=== PATIENT | male | born 1945 | race Caucasian/White ===

== ENCOUNTER 2016-07-26 18:14 | Inpatient (IN) | payer MEDICARE, SELFPAY ==
[~2016-07-26] VITALS: Ht 188 cm; Wt 143.0 kg
[2016-07-26 19:24] LABS: BASO % 0.3 % (0.2-1.2); EOS # 0.1 10_X3_uL (0.0-0.5); EOS % 0.8 % (0.8-7.0); GRAN # 7.4 10_X3_uL (1.8-5.4); GRAN % 77.9 % (34.0-67.9); HEMATOCRIT 37.1 % (40-51); HEMOGLOBIN 12.4 g/dL (13.7-17.5); LYMPH # 1.1 10_X3_uL (1.3-3.6); LYMPH % 11.9 % (21.8-53.1); MEAN CORPUSCULAR HEMOGLOBIN 29.5 pg (27.0-33.0); MEAN CORPUSCULAR HGB CONC 33.4 g/dL (32.0-36.0); MEAN CORPUSCULAR VOLUME 88.3 fL (79-92); MEAN PLATELET VOLUME 10.5 fl (7.5-11.5); MONO # 0.9 10_X3_uL (0.3-0.8); MONO % 9.1 % (5.3-12.2); PLATELET COUNT 213 x10_3/uL (163-337); RED CELL DISTRIBUTION WIDTH 14.6 % (11.6-14.4); WHITE BLOOD COUNT 9.5 x10_3/uL (4.2-9.1)
[2016-07-26 19:46] LABS: ARTERIAL BLD GAS O2 SATURATION 97.4 % (94-98); ARTERIAL BLOOD GAS BASE EXCESS 4.1 mmol/L (-2.0-3.0); ARTERIAL BLOOD GAS HCO3 27.6 mmol/L (22-26); ARTERIAL BLOOD GAS PCO2 38.5 mmHg (35-48); ARTERIAL BLOOD GAS pH 7.47 (7.35-7.45)
[2016-07-26 19:47] LABS: ALBUMIN 3.7 gm/dL (3.4-5.0); BILIRUBIN,TOTAL 0.27 mg/dL (0.0-1.0); CALCIUM 8.6 mg/dL (8.7-10.7); CREATININE 2.2 mg/dL (0.6-1.3); TOTAL PROTEIN 7.2 gm/dL (6.4-8.2)
[2016-07-26 19:53] LABS: POTASSIUM 3.5 mmol/L (3.5-5.1)
[2016-07-26 21:01] LABS: INR 3.4 (0.9-1.1); PARTIAL THROMBOPLASTIN TIME 40.7 SECONDS (21.3-29.3); PROTHROMBIN TIME (PATIENT) 34.4 SECONDS (9.9-11.1)
[2016-07-27 07:16] LABS: HEMATOCRIT 39.4 % (40-51); MEAN CORPUSCULAR VOLUME 87.8 fL (79-92); MEAN PLATELET VOLUME 10.7 fl (7.5-11.5); RED BLOOD COUNT 4.49 x10_6/uL (4.6-6.1); RED CELL DISTRIBUTION WIDTH 14.6 % (11.6-14.4); WHITE BLOOD COUNT 9.6 x10_3/uL (4.2-9.1)
[2016-07-27 07:29] LABS: CALCIUM 9.2 mg/dL (8.7-10.7); INR 3.8 (0.9-1.1); POTASSIUM 3.3 mmol/L (3.5-5.1); PROTHROMBIN TIME (PATIENT) 38.5 SECONDS (9.9-11.1)
[2016-07-27 15:07] LABS: FREE T4 1.24 ng/dL (0.93-1.7); THYROID STIMULATING HORMONE 1.89 uIU/mL (0.34-4.82)
[2016-07-28 06:35] LABS: INR 4.3 (0.9-1.1); PROTHROMBIN TIME (PATIENT) 44.3 SECONDS (9.9-11.1)
[2016-07-28 06:40] LABS: GRAN # 11.7 10_X3_uL (1.8-5.4); GRAN % 91.1 % (34.0-67.9); HEMATOCRIT 39.6 % (40-51); HEMOGLOBIN 13.2 g/dL (13.7-17.5); LYMPH # 0.7 10_X3_uL (1.3-3.6); LYMPH % 5.1 % (21.8-53.1); MEAN CORPUSCULAR HEMOGLOBIN 29.2 pg (27.0-33.0); MEAN CORPUSCULAR HGB CONC 33.3 g/dL (32.0-36.0); MEAN CORPUSCULAR VOLUME 87.6 fL (79-92); MEAN PLATELET VOLUME 10.7 fl (7.5-11.5); MONO # 0.5 10_X3_uL (0.3-0.8); MONO % 3.8 % (5.3-12.2); PLATELET COUNT 240 x10_3/uL (163-337); RED BLOOD COUNT 4.52 x10_6/uL (4.6-6.1); RED CELL DISTRIBUTION WIDTH 14.9 % (11.6-14.4); WHITE BLOOD COUNT 12.8 x10_3/uL (4.2-9.1)
[2016-07-28 06:51] LABS: ALBUMIN 3.7 gm/dL (3.4-5.0); BILIRUBIN,TOTAL 0.25 mg/dL (0.0-1.0); CALCIUM 9.2 mg/dL (8.7-10.7); CREATININE 2.3 mg/dL (0.6-1.3); POTASSIUM 3.3 mmol/L (3.5-5.1); TOTAL PROTEIN 7.7 gm/dL (6.4-8.2)
[2016-07-29 05:05] LABS: URINE BILIRUBIN NEGATIVE (NEGATIVE); URINE BLOOD NEGATIVE (NEGATIVE); URINE GLUCOSE (UA) NORMAL (NORMAL); URINE KETONE NEGATIVE (NEGATIVE); URINE LEUKOCYTE ESTERASE NEGATIVE (NEGATIVE); URINE MUCUS TRACE; URINE NITRATE NEGATIVE (NEGATIVE); URINE PROTEIN 1+ (NEGATIVE); URINE RBC 0-5 /[HPF] (0-2); UROBILINOGEN NORMAL mg/dL (<1.0)
[2016-07-29 06:37] LABS: MEAN CORPUSCULAR HEMOGLOBIN 29.6 pg (27.0-33.0); MEAN CORPUSCULAR HGB CONC 34.2 g/dL (32.0-36.0); MEAN CORPUSCULAR VOLUME 86.6 fL (79-92); MEAN PLATELET VOLUME 10.3 fl (7.5-11.5); RED BLOOD COUNT 4.39 x10_6/uL (4.6-6.1); RED CELL DISTRIBUTION WIDTH 14.8 % (11.6-14.4); WHITE BLOOD COUNT 12.3 x10_3/uL (4.2-9.1)
[2016-07-29 06:55] LABS: CALCIUM 8.9 mg/dL (8.7-10.7); CREATININE 2.4 mg/dL (0.6-1.3); POTASSIUM 3.1 mmol/L (3.5-5.1)
[2016-07-29 06:56] LABS: INR 2.9 (0.9-1.1); PROTHROMBIN TIME (PATIENT) 29.3 SECONDS (9.9-11.1)
[2016-07-30 07:31] LABS: HEMOGLOBIN 13.4 g/dL (13.7-17.5); MEAN CORPUSCULAR HEMOGLOBIN 29.4 pg (27.0-33.0); MEAN CORPUSCULAR HGB CONC 34.4 g/dL (32.0-36.0); MEAN CORPUSCULAR VOLUME 85.5 fL (79-92); MEAN PLATELET VOLUME 10.5 fl (7.5-11.5); RED BLOOD COUNT 4.56 x10_6/uL (4.6-6.1); RED CELL DISTRIBUTION WIDTH 14.6 % (11.6-14.4); WHITE BLOOD COUNT 9.6 x10_3/uL (4.2-9.1)
[2016-07-30 07:39] LABS: INR 1.9 (0.9-1.1)
[2016-07-30 07:41] LABS: CALCIUM 8.8 mg/dL (8.7-10.7); CREATININE 2.4 mg/dL (0.6-1.3)
[2016-07-31 08:13] LABS: HEMATOCRIT 39.2 % (40-51); HEMOGLOBIN 13.3 g/dL (13.7-17.5); MEAN CORPUSCULAR HEMOGLOBIN 29.2 pg (27.0-33.0); MEAN CORPUSCULAR HGB CONC 33.9 g/dL (32.0-36.0); MEAN PLATELET VOLUME 10.4 fl (7.5-11.5); RED BLOOD COUNT 4.56 x10_6/uL (4.6-6.1); RED CELL DISTRIBUTION WIDTH 14.8 % (11.6-14.4); WHITE BLOOD COUNT 11.4 x10_3/uL (4.2-9.1)
[2016-07-31 08:18] LABS: INR 1.9 (0.9-1.1); PROTHROMBIN TIME (PATIENT) 19.5 SECONDS (9.9-11.1)
[2016-07-31 08:33] LABS: CALCIUM 8.7 mg/dL (8.7-10.7); CREATININE 2.2 mg/dL (0.6-1.3)
[2016-07-31 08:44] LABS: POTASSIUM 3.1 mmol/L (3.5-5.1)
== END 2016-07-31 11:03 | disposition home or self-care (01) | DRG 191 ==
LOC: ER 18:14 → MS 07-27 00:39
PROVIDERS: Emergency Medicine; Family Medicine; ADMIT Family Medicine
DX: J44.0 Chronic obstructive pulmonary disease with (acute) lower respiratory infection (principal); J98.11 Atelectasis; J20.9 Acute bronchitis, unspecified; J44.1 Chronic obstructive pulmonary disease with (acute) exacerbation; J60 Coalworker's pneumoconiosis; I11.0 Hypertensive heart disease with heart failure; I50.9 Heart failure, unspecified; E11.9 Type 2 diabetes mellitus without complications; I25.10 Atherosclerotic heart disease of native coronary artery without angina pectoris; R50.9 Fever, unspecified; N28.9 Disorder of kidney and ureter, unspecified; E03.9 Hypothyroidism, unspecified; I48.91 Unspecified atrial fibrillation; R21 Rash and other nonspecific skin eruption; Z87.01 Personal history of pneumonia (recurrent); Z86.711 Personal history of pulmonary embolism; Z86.718 Personal history of other venous thrombosis and embolism; Z99.81 Dependence on supplemental oxygen; Z80.9 Family history of malignant neoplasm, unspecified; Z79.01 Long term (current) use of anticoagulants; Z79.899 Other long term (current) drug therapy; Z88.0 Allergy status to penicillin
CPT/HCPCS: 36415; 36600; 71010; 80048; 80053; 80061; 81001; 82550; 82553; 82803; 82962; 83036; 83605; 83880; 84439; 84443; 84479; 85025; 85610; 85730; 86738; 87040; 87070; 87205; 87449; 93005; 94640; 96365; 99070; 99284; 99285-25; J2930

== ENCOUNTER 2016-07-26 18:14 | Emergency (ER) | payer MEDICARE, SELFPAY | END 2016-07-27 00:39 | disposition other institution (70) | LOC: ER 18:14 | DX: J44.0 Chronic obstructive pulmonary disease with (acute) lower respiratory infection (principal); J20.9 Acute bronchitis, unspecified; J44.1 Chronic obstructive pulmonary disease with (acute) exacerbation; E11.9 Type 2 diabetes mellitus without complications; J60 Coalworker's pneumoconiosis; Z87.01 Personal history of pneumonia (recurrent); Z88.0 Allergy status to penicillin | CPT/HCPCS: 99284; 99285-25 ==

== ENCOUNTER 2016-08-05 22:26 | Emergency (ER) | payer MEDICARE, SELFPAY | END 2016-08-05 23:59 | disposition home or self-care (01) | LOC: ER 22:26 | DX: I50.9 Heart failure, unspecified (principal); N28.9 Disorder of kidney and ureter, unspecified; R06.02 Shortness of breath; R60.0 Localized edema; J44.9 Chronic obstructive pulmonary disease, unspecified; J60 Coalworker's pneumoconiosis; Z88.0 Allergy status to penicillin; Z79.899 Other long term (current) drug therapy; Z79.01 Long term (current) use of anticoagulants ==

== ENCOUNTER 2016-08-07 20:06 | Inpatient (IN) | payer MEDICARE ==
[~2016-08-07] VITALS: Ht 188 cm; Wt 134.0 kg
[2016-08-07 20:44] LABS: URINE BILIRUBIN NEGATIVE (NEGATIVE); URINE BLOOD 3+ (NEGATIVE); URINE GLUCOSE (UA) NORMAL (NORMAL); URINE KETONE NEGATIVE (NEGATIVE); URINE LEUKOCYTE ESTERASE NEGATIVE (NEGATIVE); URINE NITRATE NEGATIVE (NEGATIVE); URINE PROTEIN 2+ (NEGATIVE); UROBILINOGEN NORMAL mg/dL (<1.0)
[2016-08-07 21:00] LABS: URINE MUCUS 1+; URINE RBC TNTC /[HPF] (0-2); URINE SQUAMOUS EPITHELIAL CELL 0-10 /[HPF] (NONE SEEN)
[2016-08-07 21:03] LABS: BASO % 0.1 % (0.2-1.2); GRAN # 16.6 10_X3_uL (1.8-5.4); GRAN % 86.3 % (34.0-67.9); HEMATOCRIT 39.5 % (40-51); HEMOGLOBIN 13.1 g/dL (13.7-17.5); LYMPH # 1.3 10_X3_uL (1.3-3.6); LYMPH % 6.8 % (21.8-53.1); MEAN CORPUSCULAR HEMOGLOBIN 28.7 pg (27.0-33.0); MEAN CORPUSCULAR HGB CONC 33.2 g/dL (32.0-36.0); MEAN CORPUSCULAR VOLUME 86.6 fL (79-92); MEAN PLATELET VOLUME 11.2 fl (7.5-11.5); MONO # 1.3 10_X3_uL (0.3-0.8); MONO % 6.8 % (5.3-12.2); PLATELET COUNT 165 x10_3/uL (163-337); RED BLOOD COUNT 4.56 x10_6/uL (4.6-6.1); RED CELL DISTRIBUTION WIDTH 14.4 % (11.6-14.4); WHITE BLOOD COUNT 19.2 x10_3/uL (4.2-9.1)
[2016-08-07 21:05] LABS: ARTERIAL BLOOD GAS BASE EXCESS 7.7 mmol/L (-2.0-3.0); ARTERIAL BLOOD GAS HCO3 31.6 mmol/L (22-26); ARTERIAL BLOOD GAS PCO2 42.2 mmHg (35-48); ARTERIAL BLOOD GAS pH 7.49 (7.35-7.45)
[2016-08-07 21:06] LABS: ARTERIAL BLD GAS O2 SATURATION 80.7 % (94-98)
[2016-08-07 21:23] LABS: ALBUMIN 3.1 gm/dL (3.4-5.0); BILIRUBIN,TOTAL 0.67 mg/dL (0.0-1.0); CALCIUM 8.8 mg/dL (8.7-10.7); CREATININE 2.3 mg/dL (0.6-1.3); TOTAL PROTEIN 6.7 gm/dL (6.4-8.2); URIC ACID 13.1 mg/dL (3.5-7.2)
[2016-08-07 21:29] LABS: INR 3.1 (0.9-1.1); PARTIAL THROMBOPLASTIN TIME 44.1 SECONDS (21.3-29.3); PROTHROMBIN TIME (PATIENT) 31.9 SECONDS (9.9-11.1)
[2016-08-07 21:42] LABS: POTASSIUM 2.8 mmol/L (3.5-5.1)
[2016-08-08 06:20] LABS: ARTERIAL BLD GAS O2 SATURATION 87.8 % (94-98); ARTERIAL BLOOD GAS BASE EXCESS 8.1 mmol/L (-2.0-3.0); ARTERIAL BLOOD GAS HCO3 32.6 mmol/L (22-26); ARTERIAL BLOOD GAS PCO2 46.3 mmHg (35-48); ARTERIAL BLOOD GAS pH 7.46 (7.35-7.45)
[2016-08-08 06:26] LABS: INR 3.6 (0.9-1.1); PROTHROMBIN TIME (PATIENT) 36.7 SECONDS (9.9-11.1)
[2016-08-08 06:38] LABS: CALCIUM 8.4 mg/dL (8.7-10.7); CREATININE 2.3 mg/dL (0.6-1.3); POTASSIUM 3.2 mmol/L (3.5-5.1)
[2016-08-08 06:43] LABS: BASO % 0.1 % (0.2-1.2); GRAN # 15.8 10_X3_uL (1.8-5.4); GRAN % 83.3 % (34.0-67.9); HEMATOCRIT 35.3 % (40-51); LYMPH # 1.3 10_X3_uL (1.3-3.6); LYMPH % 6.6 % (21.8-53.1); MEAN CORPUSCULAR HEMOGLOBIN 29.7 pg (27.0-33.0); MEAN CORPUSCULAR VOLUME 87.4 fL (79-92); MONO # 1.9 10_X3_uL (0.3-0.8); PLATELET COUNT 149 x10_3/uL (163-337); RED BLOOD COUNT 4.04 x10_6/uL (4.6-6.1); RED CELL DISTRIBUTION WIDTH 14.3 % (11.6-14.4); WHITE BLOOD COUNT 18.9 x10_3/uL (4.2-9.1)
[2016-08-09 06:32] LABS: HEMATOCRIT 36.6 % (40-51); HEMOGLOBIN 12.4 g/dL (13.7-17.5); MEAN CORPUSCULAR HEMOGLOBIN 29.5 pg (27.0-33.0); MEAN CORPUSCULAR HGB CONC 33.9 g/dL (32.0-36.0); MEAN CORPUSCULAR VOLUME 87.1 fL (79-92); MEAN PLATELET VOLUME 11.5 fl (7.5-11.5); RED BLOOD COUNT 4.2 x10_6/uL (4.6-6.1); RED CELL DISTRIBUTION WIDTH 14.2 % (11.6-14.4); WHITE BLOOD COUNT 18.7 x10_3/uL (4.2-9.1)
[2016-08-09 06:54] LABS: CALCIUM 8.7 mg/dL (8.7-10.7); POTASSIUM 3.4 mmol/L (3.5-5.1)
[2016-08-09 07:02] LABS: INR 4.8 (0.9-1.1)
[2016-08-10 06:38] LABS: HEMATOCRIT 37.5 % (40-51); HEMOGLOBIN 12.7 g/dL (13.7-17.5); MEAN CORPUSCULAR HEMOGLOBIN 29.2 pg (27.0-33.0); MEAN CORPUSCULAR HGB CONC 33.9 g/dL (32.0-36.0); MEAN CORPUSCULAR VOLUME 86.2 fL (79-92); MEAN PLATELET VOLUME 11.6 fl (7.5-11.5); RED BLOOD COUNT 4.35 x10_6/uL (4.6-6.1); RED CELL DISTRIBUTION WIDTH 14.4 % (11.6-14.4)
[2016-08-10 06:40] LABS: CALCIUM 8.7 mg/dL (8.7-10.7); CREATININE 3.5 mg/dL (0.6-1.3); POTASSIUM 3.4 mmol/L (3.5-5.1)
[2016-08-10 06:52] LABS: PROTHROMBIN TIME (PATIENT) 55.2 SECONDS (9.9-11.1)
[2016-08-10 06:53] LABS: INR 5.4 (0.9-1.1)
== END 2016-08-10 11:00 | disposition short-term general hospital (02) | DRG 191 ==
LOC: ER 20:06 → MS 08-08 00:30
PROVIDERS: Emergency Medicine; ADMIT Family Medicine
DX: J44.1 Chronic obstructive pulmonary disease with (acute) exacerbation (principal); N17.9 Acute kidney failure, unspecified; R09.02 Hypoxemia; E87.6 Hypokalemia; R53.1 Weakness; I12.9 Hypertensive chronic kidney disease with stage 1 through stage 4 chronic kidney disease, or unspecified chronic kidney disease; E11.22 Type 2 diabetes mellitus with diabetic chronic kidney disease; N18.9 Chronic kidney disease, unspecified; R26.2 Difficulty in walking, not elsewhere classified; R50.9 Fever, unspecified; I44.7 Left bundle-branch block, unspecified; R60.0 Localized edema; Z99.81 Dependence on supplemental oxygen; Z88.0 Allergy status to penicillin; Z79.899 Other long term (current) drug therapy; Z79.01 Long term (current) use of anticoagulants
CPT/HCPCS: 36415; 36600; 51702; 71010; 73560; 80048; 80053; 80061; 81001; 82803; 82962; 83605; 83880; 84550; 85025; 85610; 85730; 86738; 87040; 87449; 93005; 93041; 93306; 94640; 94664; 96365; 96375; 99070; 99284; 99285-25; J2930; J3430; J7050

== ENCOUNTER 2016-08-07 20:06 | Emergency (ER) | payer MEDICARE, SELFPAY | END 2016-08-10 11:10 | disposition other institution (70) | LOC: ER 20:06 | DX: J18.9 Pneumonia, unspecified organism (principal); J44.9 Chronic obstructive pulmonary disease, unspecified; Z99.81 Dependence on supplemental oxygen; I44.7 Left bundle-branch block, unspecified; Z88.0 Allergy status to penicillin; R21 Rash and other nonspecific skin eruption; R53.1 Weakness; R50.9 Fever, unspecified; M62.50 Muscle wasting and atrophy, not elsewhere classified, unspecified site; Z79.899 Other long term (current) drug therapy | CPT/HCPCS: 51702; 99284; 99285-25 ==